=== PATIENT | female | born 1995 | race Caucasian/White ===

== ENCOUNTER 2017-07-23 21:42 | Emergency (ER) | payer SELFPAY ==
[2017-07-23 22:51] LABS: Hematocrit 42 % (35-47); Hemoglobin 14.1 g/dl (12.0-16.0); Mean Corpuscular HGB Conc 34 g/dl (31-36); Mean Corpuscular Hemoglobin 29 pg (27-31); Mean Corpuscular Volume 86 fL (80-97); Mean Platelet Volume 8 um3 (7.4-10.4); Red Blood Count 4.84 10^6/ul (4.0-5.4); Red Cell Distribution Width 14 % (10.5-15); White Blood Count 10.9 10^3/ul (3.5-10.8)
[2017-07-23 22:53] LABS: Urine Bilirubin Negative (Negative); Urine Glucose Negative (Negative); Urine Nitrite Negative (Negative)
--- NOTE | 2017-07-23 23:00 | ED ---
Psychiatric Complaint - HPI Summary HPI Summary: 21F presents with increase anxiety. She states she is hearing thoughts to harm herself and doesn't want to act on them. She denies any SI. She states she has harmed herself in the past and does not want to get that point. She denies any drug or ETOH use. She has a strong friend support system. She has increase stress in her life. - History Of Current Complaint Chief Complaint: EDMentalHealth Time Seen by Provider: 07/23/17 22:33 - Allergies/Home Medications Allergies/Adverse Reactions: Allergies Allergy/AdvReac Type Severity Reaction Status Date / Time No Known Allergies Allergy Verified 07/23/17 22:34 PMH/Surg Hx/FS Hx/Imm Hx Endocrine/Hematology History: Denies: Hx Anticoagulant Therapy Cardiovascular History: Denies: Hx Hypertension Musculoskeletal History: Denies: Hx Rheumatoid Arthritis, Hx Osteoporosis Psychiatric History: Reports: Hx Anxiety Infectious Disease History: No Infectious Disease History: Denies: Traveled Outside the [place] in Last 30 Days - Family History Known Family History: Positive: Other - anxiety - Social History Alcohol Use: None Substance Use Type: Reports: None Smoking Status (MU): Never Smoked Tobacco Review of Systems Negative: Fever Negative: Chest Pain Negative: Shortness Of Breath Positive: Anxious All Other Systems Reviewed And Are Negative: Yes Physical Exam Triage Information Reviewed: Yes Vital Signs On Initial Exam: Initial Vitals Temp Pulse Resp BP Pulse Ox 98.1 F 101 18 132/77 99 07/23/17 22:24 07/23/17 22:24 07/23/17 22:24 07/23/17 22:24 07/23/17 22:24 Vital Signs Reviewed: Yes Appearance: Positive: Well-Appearing Skin: Positive: Warm, Dry Head/Face: Positive: Normal Head/Face Inspection Eyes: Positive: Normal, Conjunctiva Clear Respiratory/Lung Sounds: Positive: Clear to Auscultation, Breath Sounds Present Cardiovascular: Positive: Normal, RRR Abdomen Description: Positive: Nontender, Soft Bowel Sounds: Positive: Present - [place] Coma Scale Coma Scale Total: 15 Diagnostics - Vital Signs Vital Signs Temp Pulse Resp BP Pulse Ox 07/23/17 22:24 98.1 F 101 18 132/77 99 - Laboratory Lab Results: Lab Results 07/23/17 07/23/17 Range/Units 22:07 22:33 WBC 10.9 H (3.5-10.8) 10^3/ul RBC 4.84 (4.0-5.4) 10^6/ul Hgb 14.1 (12.0-16.0) g/dl Hct 42 (35-47) % MCV 86 (80-97) fL MCH 29 (27-31) pg MCHC 34 (31-36) g/dl RDW 14 (10.5-15) % Plt Count 288 (150-450) 10^3/ul MPV 8 (7.4-10.4) um3 Neut % (Auto) 68.2 (38-83) % Lymph % (Auto) 23.5 L (25-47) % [place] % (Auto) 4.5 (1-9) % Eos % (Auto) 3.5 (0-6) % Baso % (Auto) 0.3 (0-2) % Absolute Neuts (auto) 7.4 (1.5-7.7) 10^3/ul Absolute Lymphs (auto) 2.6 (1.0-4.8) 10^3/ul Absolute Monos (auto) 0.5 (0-0.8) 10^3/ul Absolute Eos (auto) 0.4 (0-0.6) 10^3/ul Absolute Basos (auto) 0 (0-0.2) 10^3/ul Absolute Nucleated RBC 0.01 10^3/ul Nucleated RBC % 0.1 Urine Color Yellow Urine Appearance Clear Urine pH 6.0 (5-9) Ur Specific [place] 1.013 (1.010-1.030) Urine Protein Negative (Negative) Urine Ketones Negative (Negative) Urine Blood Negative (Negative) Urine Nitrate Negative (Negative) Urine Bilirubin Negative (Negative) Urine Urobilinogen Negative (Negative) Ur Leukocyte Esterase Negative (Negative) Urine Glucose Negative (Negative) Result Diagrams: 07/23/17 22:33 07/23/17 22:33 Lab Statement: Any lab studies that have been ordered have been reviewed, and results considered in the medical decision making process. Course/Dx - Course Course Of Treatment: 21F presents with increase anxiety. She states she is hearing thoughts to harm herself and doesn't want to act on them. She denies any SI. She states she has harmed herself in the past and does not want to get that point. She denies any drug or ETOH use. She has a strong friend support system. She has increase stress in her life. patient medically clear for [facility]. patient signed out to dr snell pending [facility] for disposition - Differential Dx/Clinical Impression Differential Diagnosis/HQI/PQRI: Positive: Anxiety, Depression, Suicidal Ideation Provider Diagnosis: Anxiety Discharge - Discharge Plan Condition: Stable Disposition: OTHER Discharge Disposition Comment: dr snell Referrals: Non Staff,Doctor [Primary Care Provider] -
[2017-07-23 23:01] LABS: ALT 14 U/L (7-52); AST 17 U/L (13-39); Albumin 4.3 g/dL (3.2-5.2); Alkaline Phosphatase 68 U/L (34-104); Anion Gap 7 mmol/L (2-11); BUN/Creatinine Ratio 12.8 (8-20); Blood Urea Nitrogen 10 mg/dL (6-24); CO2 Carbon Dioxide 25 mmol/L (22-32); Calcium 9.6 mg/dL (8.6-10.3); Chloride 103 mmol/L (101-111); EGFR African American 121.1 (>60); EGFR Non-African American 94.2 (>60); Glucose 107 mg/dL (70-100); Potassium 3.7 mmol/L (3.5-5.0); Sodium 135 mmol/L (133-145); Total Protein 7.3 g/dL (6.4-8.9)
[2017-07-23 23:04] LABS: Acetaminophen < 15 mcg/mL; Alcohol < 10 mg/dL (<10)
[2017-07-23 23:05] LABS: Benzodiazepine Urine Screen None Detected (None Detect)
[2017-07-23 23:15] LABS: TSH (Thyroid Stimulating Horm) 1.61 mcIU/mL (0.34-5.60)
[2017-07-23 23:57] LABS: Salicylate < 2.50 mg/dL (<30)
--- NOTE | 2017-07-24 05:34 | ED ---
Progress - Progress Note Progress Note: pt discharged home in stable condition - Consult/PCP Time Called: 11:00 Course/Dx - Course Course Of Treatment: 21F presents with increase anxiety. She states she is hearing thoughts to harm herself and doesn't want to act on them. She denies any SI. She states she has harmed herself in the past and does not want to get that point. She denies any drug or ETOH use. She has a strong friend support system. She has increase stress in her life. patient medically clear for [facility]. patient signed out to dr snell pending [facility] for disposition - Diagnoses Provider Diagnoses: Anxiety
[2017-07-24 06:21] VITALS: BP 106/71
== END 2017-07-24 06:00 ==
LOC: ED 21:42
DX: F41.9 Anxiety disorder, unspecified (principal)
CPT/HCPCS: 36415; 80053; 80307; 80320; 80329; 81003; 84443; 85025; 99284; G0480